=== PATIENT | female | born 1950 | race Caucasian/White ===

== ENCOUNTER 2016-09-09 13:06 | Day surgery (SDC) | payer OTHER, MEDICARE ==
[~2016-09-09 13:06] MED LIST: ACCOLATE20 M1 PO; DEXILANT60 M1 PO; EXCEDRIN MIGRA1 EAC3 PO; NIACIN500 M4 PO; PULMICORT FLEX90 MCG INH; SOMA350 M1 PO; ULTRAM50 M1 PO; VENTOLIN HFA18 G2 PO; [UNRECOGNIZED DRUG - REMARK] PO
[2016-09-10] MEDS ORDERED: NORCO 5-325 TA1 EACH PO (08:42)
[2016-09-10] MEDS ORDERED: COLACE100 M1 PO (08:42)
== END 2016-09-10 10:13 ==
LOC: SHSB 13:06 → ORW 15:21 → BURN 16:57
PROC: 0FT44ZZ Resection of Gallbladder, Percutaneous Endoscopic Approach (ICD-10-PCS; principal; 2016-09-09)
DX: K80.10 Calculus of gallbladder with chronic cholecystitis without obstruction (principal); E66.01 Morbid (severe) obesity due to excess calories; M47.819 Spondylosis without myelopathy or radiculopathy, site unspecified; M19.042 Primary osteoarthritis, left hand; M19.041 Primary osteoarthritis, right hand; G43.909 Migraine, unspecified, not intractable, without status migrainosus; J45.909 Unspecified asthma, uncomplicated; K21.9 Gastro-esophageal reflux disease without esophagitis; Z79.899 Other long term (current) drug therapy; Z88.1 Allergy status to other antibiotic agents; Z91.048 Other nonmedicinal substance allergy status; Z87.891 Personal history of nicotine dependence; Z98.51 Tubal ligation status; Z98.41 Cataract extraction status, right eye; Z98.42 Cataract extraction status, left eye; Z98.890 Other specified postprocedural states
CPT/HCPCS: J0690; J7030